=== PATIENT | male | born 1960 | race Caucasian/White ===

== ENCOUNTER 2021-08-09 00:38 | Day surgery (SDC) | payer BC, SELFPAY ==
[2021-07-11 12:07] VITALS: BMI 33.3
--- NOTE | 2021-07-20 12:50 | PC.NURSE ---
No changes in medications or health history since interview on 07/11/2021. Orders updated, times reviewed with patient.
[2021-08-09 09:49] VITALS: BP 137/86; PULSE 95; RESP 18; TEMP 36.7; O2SAT 97
--- NOTE | 2021-08-09 09:49 | WPDGICN ---
Assessment and Plan Assessment and plan (1) Colon cancer screening: Code(s): Z12.11 - Encounter for screening for malignant neoplasm of colon Status: Acute Assessment and Plan: Patient presents for screening colonoscopy. He appears to be at average risk for colon polyps. Further recommendations may be given after endoscopy. GI Consult Note Consult date/time: 08/09/21 09:49 Reason for consult: Neoplasia screening. HPI: Kevin Smart Jr. is a 60 year old male Presents for neoplasia screening colonoscopy. Patient's current weight appetite bowel movements are normal. He denies abdominal pain. He has had no bleeding. Family history is noncontributory. Patient's last colonoscopy 10 years ago was unremarkable. Presents today for neoplasia screening colonoscopy. Review of Systems Review of Systems: Review of systems noncontributory. [facility] Past Medical History Medical History (Updated 06/07/21 @ 10:08 by Julien Barbosa MD) Abnormal fasting glucose Acute non-recurrent maxillary sinusitis BMI 34.0-34.9,adult BMI 35.0-35.9,adult Chronic low back pain with right-sided sciatica (~03/2021) intermittent right sciatica with mild symptoms Colon cancer screening COVID-19 (~01/14/20) Encounter for prostate cancer screening Encounter for wellness examination in adult Obesity (BMI 30-39.9) Seasonal allergic rhinitis Seborrheic dermatitis Vitamin B12 deficiency anemia Family History Family History (Updated 12/07/20 @ 09:47 by Manjula Alonzo MA) Father Heart disease Parkinsons disease Mother Hypertension Sibling Hypertension Grandparent Cancer Social History Social History Smoking status: Never smoker Alcohol intake: current Drinks per week: 5 Alcohol use details: beer socially Substance use: never Substance use type: does not use Living arrangements: with family Spiritual care concerns: No Meds Home Medications and Allergies Home Medications Medication Instructions Recorded Confirmed Type cyanocobalamin (vitamin B-12) 1,000 mcg PO DAILY 12/07/20 07/20/21 History 1,000 mcg tablet fluticasone propionate 50 1 spray intranasal BID #16 grams 12/07/20 07/20/21 Rx mcg/actuation nasal spray,suspension (Flonase Allergy Relief) mometasone 0.1 % topical cream 1 applic topical DAILY PRN rash 2 12/11/20 07/20/21 Rx weeks #30 grams meloxicam 15 mg tablet 15 mg PO DAILY PRN pain #30 tabs 06/07/21 07/20/21 Rx Allergies Allergy/AdvReac Type Severity Reaction Status Date / Time No Known Allergies Allergy Verified 08/09/21 09:48 Exam Narrative: Physical exam reveals patient to be alert. Vital signs stable. HEENT exam is unremarkable. Patient is anicteric. Lungs are clear to auscultation and percussion. Heart is without murmur or extra sounds. Abdominal exam bowel sounds are present soft nontender with no organomegaly. Digital external rectal exam is normal.
[2021-08-09] MEDS: LACTATED RINGERS 1,000 ML 150 ML IV CONT (09:58)
--- NOTE | 2021-08-09 10:23 | WPDANESEPPF ---
Anes - Initial Pre Proc Eval Procedure: Operation Date: 08/09/21 11:00 Proposed Procedures p Screening Colonoscopy - Arun Larry MD Date/Time: 08/09/21 10:23 Surgeon: Arun Larry MD Pre Op Diagnosis: neoplasm screening Patient Data Age: 60 Gender: M Height: 1.65 m Weight: 90.5 kg Last Vital Signs Temp 98.1 F 08/09/21 09:49 Pulse 95 08/09/21 09:49 Resp 18 08/09/21 09:49 BP 137/86 08/09/21 09:49 Pulse Ox 97 08/09/21 09:49 O2 Del Method Room Air 08/09/21 09:49 Allergies Allergy/AdvReac Type Severity Reaction Status Date / Time No Known Allergies Allergy Verified 08/09/21 09:48 Home Medications Medication Instructions Recorded Confirmed Type cyanocobalamin (vitamin B-12) 1,000 mcg PO DAILY 12/07/20 08/09/21 History 1,000 mcg tablet fluticasone propionate 50 1 spray intranasal BID #16 grams 12/07/20 08/09/21 Rx mcg/actuation nasal spray,suspension (Flonase Allergy Relief) mometasone 0.1 % topical cream 1 applic topical DAILY PRN rash 2 12/11/20 08/09/21 Rx weeks #30 grams meloxicam 15 mg tablet 15 mg PO DAILY PRN pain #30 tabs 06/07/21 08/09/21 Rx Patient hx anesthesia problems: none Family hx anesthesia problems: none Results Review: All pre-operative results and documents have been reviewed as part of the pre-operative evaluation. [facility] Past Medical History Medical History (Updated 06/07/21 @ 10:08 by Julien Barbosa MD) Abnormal fasting glucose Acute non-recurrent maxillary sinusitis BMI 34.0-34.9,adult BMI 35.0-35.9,adult Chronic low back pain with right-sided sciatica (~03/2021) intermittent right sciatica with mild symptoms Colon cancer screening COVID-19 (~01/14/20) Encounter for prostate cancer screening Encounter for wellness examination in adult Obesity (BMI 30-39.9) Seasonal allergic rhinitis Seborrheic dermatitis Vitamin B12 deficiency anemia Family History Family History (Updated 12/07/20 @ 09:47 by Manjula Alonzo MA) Father Heart disease Parkinsons disease Mother Hypertension Sibling Hypertension Grandparent Cancer Social History Social History Smoking status: Never smoker Alcohol intake: current Drinks per week: 5 Alcohol use details: beer socially Substance use: never Substance use type: does not use Living arrangements: with family Spiritual care concerns: No Anes - Eval Final PreProcedure Day of Procedure 08/09/21 10:23 Patient weight: obese Heart: regular rate and rhythm Lungs: clear to auscultation Airway: Mallampati scale class II Neurological: alert and oriented Last oral intake: >/= 8 hours ASA classification: II Emergent: no Anesthetic plan: proceed Anesthesia type and monitoring: general GIVS and standard monitoring Results Review: All pre-operative results and documents have been reviewed as part of the pre-operative evaluation. Informed Consent: The patient's anesthetic plan and its attendant risks and benefits were discussed with the patient/family/POA. Questions were solicited and answers provided to the satisfaction of the patient/family/POA.
[2021-08-09 10:53] VITALS: BP 114/78; PULSE 79; RESP 24; O2SAT 97
[2021-08-09 11:03] VITALS: BP 132/93; PULSE 73; RESP 15; O2SAT 94
[2021-08-09 11:13] VITALS: BP 143/90; PULSE 68; RESP 22; O2SAT 96
== END 2021-08-09 11:27 | disposition home or self-care (01) ==
PROVIDERS: PCP Family Medicine; Visit Provider Internal Medicine Gastroenterology
PROC: 0DJD8ZZ Inspection of Lower Intestinal Tract, Via Natural or Artificial Opening Endoscopic (ICD-10-PCS; CPT 45378; principal; 2021-08-09 11:00)
DX: Z12.11 Encounter for screening for malignant neoplasm of colon (principal); K64.8 Other hemorrhoids; Z86.16 Personal history of COVID-19; D51.9 Vitamin B12 deficiency anemia, unspecified; R73.01 Impaired fasting glucose; E66.9 Obesity, unspecified; Z68.33 Body mass index [BMI] 33.0-33.9, adult; L21.9 Seborrheic dermatitis, unspecified
CPT/HCPCS: 45378; J2704; J7120